=== PATIENT | male | born 1935 | race Caucasian/White ===

== ENCOUNTER 2017-02-12 10:22 | Emergency (ER) | payer MEDICARE ==
[~2017-02-12 10:22] MED LIST: ASCO500C6 PO; ASPI-973 PO; CEPH500T PO; CHOL200047 PO; CITA20TA11 PO; CLOP75TA28 PO; FOLI0.4T2 PO; GABA-502 PO; HYDR-4003 PO; ISOS60TA2 PO; LATA2.5D6 BOTH_EYES; LIP40 PO; LORA1TAB PO; LOSA25TA21 PO; MAGN500T PO; METO100T3 PO; MULT1CAP33 PO; NITR0.4T PO; OMEG300C3 PO; UBID100T7 PO
[2017-02-12 10:29] VITALS: BP 113/67; PULSE 62; RESP 12; O2SAT 98
--- NOTE | 2017-02-12 10:30 | ED.REPORT ---
HPI-Trauma Minor / Fall Date of Service February 12, 2017 ED Provider: Beto Dumont DO The pt is a 82 y/o male on Plavix w/ a hx of sternectomy, hypertension, spinal stenosis, CAD, ID, hyperlipidemia and multiple other medical concerns presenting to the ED via ambulance due to falling twice earlier today. He reports walking to the bathroom w/ his walker and his L leg "giving out." This caused him to fall and hit his head, resulting in soreness in his head and neck. There was no LOC. His leg has been giving out on him for the last 6 months. He denies back pain, loss of bowel or bladder control, chest pain, abdominal pain or saddle numbness. The pt lives alone and is usually able to transfer from his wheelchair or walker to the toilet independently. Nursing Notes Stated Complaint: FALL Chief Complaint: Multiple Trauma/Fall Nursing Notes Reviewed: Yes Allergies: Coded Allergies: No Known Allergies (Unverified Allergy, Unknown, 07/03/15) Scheduled Ascorbic Acid (Vitamin C) 500 Mg Capsule.er 1,500 MG PO DAILY Aspirin (Aspirin) 81 Mg Tablet 81 MG PO DAILY Atorvastatin (Lipitor) 40 Mg Tablet 40 MG PO DAILY Cephalexin (Cephalexin) 500 Mg Tablet 500 MG PO DAILY Cholecalciferol (Vitamin D3) (Vitamin D3) 2,000 Unit Capsule 2,000 UNIT PO BID Citalopram (Citalopram) 20 Mg Tablet 20 MG PO HS Clopidogrel (Clopidogrel) 75 Mg Tablet 75 MG PO DAILY Folic Acid (Folic Acid) 0.4 Mg Tablet 0.4 MG PO DAILY Gabapentin (Gabapentin) 300 Mg Capsule 900 MG PO TID Isosorbide MN ER (Isosorbide MN ER) 60 Mg Tab.er.24h 60 MG PO 0730 Latanoprost (Latanoprost) 2.5 Ml Drops 1 DROP BOTH_EYES HS Lorazepam (Lorazepam) 1 Mg Tablet 1-2 MG PO HS Losartan Potassium (Losartan Potassium) 25 Mg Tablet 25 MG PO DAILY Metoprolol Tartrate (Metoprolol Tartrate) 100 Mg Tablet 100 MG PO BID Multivitamin (Multivitamins) 1 Each Capsule 1 EACH PO DAILY [place]-3 Fatty Acids (Fish Oil) 300 Mg Capsule 900 MG PO BID Ubidecarenone (Coenzyme Q10) 100 Mg Tablet 100 MG PO DAILY Scheduled PRN Hydrocodone-Acetaminophen 5-325 mg (Hydrocodone-Acetaminophen 5-325 mg) 1 Each Tablet 1 EACH PO QID PRN PRN For Pain Nitroglycerin SL (Nitrostat) 0.4 Mg Tab.subl 0.4 MG PO Q5MIN PRN PRN For Chest Pain Miscellaneous Medications Magnesium Oxide (Magnesium Oxide) 500 Mg Tablet 500 MG PO General Time Seen by MD: 10:30 Chief Complaint Fall Hx Obtained From: Patient, EMS Arrived By: Ambulance Onset Occurred: Just prior to arrival Recent Healthcare: No recent hospitalization, Recent doctor visit Similar Sx Previous: Yes Past Medical History Past Medical History Urinary retention Benign prostatic hypertrophy, TURP x2 Upper extremity DVT Anxiety Spinal stenosis Sleep apnea on CPAP Neuropathy thrombocytopenia Anemia AV arrhythmias status post AICD/pacer UTI sepsis in May 2014. Cataracts MRSA Spinal stenosis Arthritis emphysema ID Gout Reports: Coronary artery disease, Hyperlipidemia, Hypertension Past Surgical History TURP AICD/pacemaker Sternectomy Pectoral flap Bilat partial knee replacements Back L shoulder Reports: CABG Smoking History Never Smoker Social History Alcohol Use: Denies alcohol use Other Social History: Good social support, Ambulatory Status Walker Review of Systems Loss of L leg function, head pain Denies saddle numbness Denies loss of bowel or bladder control Basic Review of Systems GI: No abdominal pain Respiratory: Denies: Non-productive cough Musculoskeletal: Reports: Neck pain, Denies: Back pain Neurologic: Denies: Change LOC Complete sys rev & neg: except as marked. Cardiovascular: Denies: Chest pain GI: Denies: Abdominal pain Physical Exam Initial Vital Signs Vital Signs (First) Date Time Temp Pulse Resp B/P Pulse Ox O2 Delivery O2 Flow Rate FiO2 02/12/17 10:29 36.3 62 12 113/67 98 Initial VS: Reviewed General/Constitutional: Awake, Alert Appearance / Presentation: Positive: Obese Neck: Atraumatic, Supple, Full range of motion Head / Eyes: Normocephalic, No photophobia Bruising around L supraorbital area ENT: Atraumatic, Airway patent Respiratory / Chest: Breath sounds NL, Breath sounds = bilat, No respiratory distress Sternum is surgically absent w/ well healed scar Prominent visible beating of his underlying myocardium Cardiovascular: Heart rate NL, Regular rhythm, Heart sounds NL 1+ dorsalis pedis pulses Back: Atraumatic, Full range of motion Lower Extremity / Pelvis / MS: Full range of motion, Neurologic intact Abrasions to L patella and anterior tibia Trace lower extremity edema Skin: Atraumatic, Color NL, No rash, Warm, Dry Neurologic: Oriented X3, Speech NL Interpretation & Diagnostics Lab Results Interpretation Result Diagram: 02/12/17 1050 02/12/17 1050 Test 02/12/17 10:50 White Blood Count 9.8th/mm3 (3.8-10.1) Red Blood Count 4.73mil/mm3 (4.40-5.80) Hemoglobin 14.5g/dL (13.8-17.2) Hematocrit 41.9% (41.0-50.0) Mean Corpuscular Volume 88.6fL (81-100) Mean Corpuscular Hemoglobin 30.7pg (27.0-35.0) Mean Corpuscular Hemoglobin Concent 34.6% (32.0-37.0) Red Cell Distribution Width 14.9% (12.3-15.4) Platelet Count 205bil/L (150-400) Neutrophils (%) (Auto) 74.1% (40-74) Lymphocytes (%) (Auto) 14.6% (14-46) Monocytes (%) (Auto) 10.2% (4-12) Eosinophils (%) (Auto) 0.5% (0-5) Basophils (%) (Auto) 0.1% (0-3) Sodium Level 132mEq/L (134-144) Potassium Level 4.2mEq/L (3.5-5.2) Chloride Level 95mEq/L (97-108) Carbon Dioxide Level 20mmol/L (18-29) Blood Urea Nitrogen 23mg/dL (8-27) Creatinine 0.83mg/dL (0.76-1.27) Estimat Glomerular Filtration Rate 95mL/min (>59) Glucose Level 124mg/dL (60-99) Calcium Level 9.2mg/dL (8.5-10.1) Total Bilirubin 0.8mg/dL (0.0-1.2) Aspartate Amino Transf (AST/SGOT) 23U/L (0-50) Alanine Aminotransferase (ALT/SGPT) 49U/L (0-44) Alkaline Phosphatase 62U/L (25-160) Total Protein 6.6g/dL (6.4-8.4) Albumin 4.2g/dL (3.4-5.0) ECG Interpretation ECG Interpretation: Sinus rhythm of 62 Widened QRS at 131 Normal QTC at [address] changes Time: 10:47 Interpreted by: ED physician CT Head Interpretation IMPRESSION: Left frontal scalp hematoma and soft tissue swelling. No acute intracranial process. Dictated by: Riley Haider M.D. on 02/12/2017 at 12:00 Approved by: Riley Haider M.D. on 02/12/2017 at 12:03 Study: Head CT no contrast Interpretation / Wet Read by: Interpret - Radiologist CT C-Spine Interpretation IMPRESSION: Suboptimal study sensitivity due to noise artifact, and diffuse osteopenia. No definite acute fracture seen. Mild to moderate mid to lower cervical disc degeneration from C5-C7. Overall, appearance of the anterior endplates of C5-C7 appears grossly unchanged since prior study dated 11/30/16. Dictated by: Riley Haider M.D. on 02/12/2017 at 12:03 Approved by: Riley Haider M.D. on 02/12/2017 at 12:09 Study type: CT no contrast Interpretation / Wet Read by: Interpret - Radiologist Re-Eval/Medical Decision Med Decision/Clinical Course Overall this sounds like a mechanical fall. Trauma imaging in basic labs are unremarkable. The patient reports that he feels normal and at baseline. It does sound like he has had trouble with ambulation and is mostly wheelchair bound. He and his family feel comfortable taking him home. Return and follow-up precautions given. Source of Hx: Old records Re-Evaluation/Progress : Time of Eval: 12:22 Patient Status: Condition improved Re-Evaluation/Progress Note: Discussed labs and plans for discharge. Pt understands and agrees with plan for discharge. F/U instructions and RTER warnings given. All questions addressed. Counseled Regarding: Diagnosis, Lab results, Need for follow-up, When/why to return to ED Discharge & Departure Impression: Primary Impression: Fall Encounter type: initial encounter Qualified Code: W19.XXXA - Unspecified fall, initial encounter Additional Impression: Contusion of forehead Encounter type: initial encounter Qualified Code: S00.83XA - Contusion of other part of head, initial encounter Disposition: Home Discharge Condition All VS Reviewed: Yes Condition: Stable Additional Instructions: Thank you for entrusting us with your care. You were seen today due to a fall with associated head pain. Luckily your imaging studies didn't show any fractures. Maintain 3 points of contact to help reduce risk of future falls. Take Tylenol as needed to manage the pain. Arrange a follow up appointment later this week for further evaluation. Return to the emergency department if you experience any headaches, vomiting, nausea, or any other new or worsening symptoms. Referrals: Blank Mckeon MD (PCP) Scribe Attestation Portions of this note were transcribed by Alvarez Strong and Marcellus Claudio. I, Dr. Deangelo Glover personally performed the history, physical exam and medical decision- making; I reviewed and confirmed the accuracy of the information in the transcribed note. Signed by: Rachell Enamorado, 02/12/17 and 1314. copies to: Blank Mckeon MDBeto Portillo February 12, 2017 10:30 Alvarez Strong February 12, 2017 10:47 MARCELLUS CLAUDIO February 12, 2017 13:07
[2017-02-12 11:13] LABS: BASOPHILS % (AUTO) 0.1 % (0-3); EOSINOPHILS % (AUTO) 0.5 % (0-5); MONOCYTES % (AUTO) 10.2 % (4-12); Mean Corpuscular Hemoglobin 30.7 pg (27.0-35.0); Mean Corpuscular Volume 88.6 fL (81-100); NEUTROPHILS % (AUTO) 74.1 % (40-74); Platelet Count 205 bil/L (150-400)
--- NOTE | 2017-02-12 12:05 | DRSVH ---
PROCEDURE: CT BRAIN WITHOUT CONTRAST ([id number]) INDICATIONS: fall, head injury, neck pain TECHNIQUE: Noncontrast 4.5 mm thick angled axial sections acquired from the foramen magnum to the vertex, with c oronal reformats. COMPARISON: [facility], CT, CT BRAIN WO CON, 09/08/2016, 13:24. FINDINGS: Image quality: Excellent. CSF spaces: Basal cisterns are patent. No extra-axial fluid collections. The ventricles are symmet mo in size and shape. Brain: No intracranial bleeds or masses. Possible subtle left occipital encephalomalacia, however th e appearance is unchanged since 09/08/16. There is a presumed calcification in the anterior right fro ntal axial space which is unchanged There is cerebral volume loss for age, with resultant ventricular and sulcal prominence. There are periventricular and deep white matter chronic small vessel ischemi c changes. There is intracranial internal carotid artery atherosclerosis. Skull and face: Large left frontal scalp contusion/hematoma Sinuses: Visualized sinuses and mastoids are clear. IMPRESSION: Left frontal scalp hematoma and soft tissue swelling. No acute intracranial process. Dictated by: Riley Haider M.D. on 02/12/2017 at 12:00 Approved by: Riley Haider M.D. on 02/12/2017 at 12:03
--- NOTE | 2017-02-12 12:11 | DRSVH ---
PROCEDURE: CT CERVICAL SPINE WITHOUT CONTRAST ([id number]) INDICATIONS: fall, head injury, neck pain TECHNIQUE: Noncontrast 3 mm thick sections acquired from the skull base to the T4 level. Sagittal and coronal r eformats were then constructed. For radiation dose reduction, the following was used: automated exp osure control, adjustment of mA and/or kV according to patient size. COMPARISON: [facility], CT, CT MYELOGRAM THORACIC SPINE, 11/30/2016, 14:43. FINDINGS: Image quality: Suboptimal due to body habitus and noise artifact in particular at the level of C4-C7 Bones: No fractures or dislocations. There is decreased in study sensitivity due to noise artifact and diffuse osteopenia. Diffuse cervical endplate spurring and sclerosis is present with grossly unch anged appearance since 11/30/16 Visualized superior ribs are intact. Bilateral diffuse facet arthropa thy. Soft tissues: Prevertebral soft tissues are normal in thickness. No paravertebral hematomas. No ap ical pneumothoraces. IMPRESSION: Suboptimal study sensitivity due to noise artifact, and diffuse osteopenia. No definite acute fractur e seen. Mild to moderate mid to lower cervical disc degeneration from C5-C7. Overall, appearance of t he anterior endplates of C5-C7 appears grossly unchanged since prior study dated 11/30/16. Dictated by: Riley Haider M.D. on 02/12/2017 at 12:03 Approved by: Riley Haider M.D. on 02/12/2017 at 12:09
== END 2017-02-12 12:50 | disposition home or self-care (01) ==
LOC: EDBD 10:22 → SED 10:22
DX: S00.83XA Contusion of other part of head, initial encounter (principal); W18.30XA Fall on same level, unspecified, initial encounter; Y93.01 Activity, walking, marching and hiking; Y92.9 Unspecified place or not applicable; Y99.8 Other external cause status; I10 Essential (primary) hypertension; I25.10 Atherosclerotic heart disease of native coronary artery without angina pectoris; I25.2 Old myocardial infarction; E78.5 Hyperlipidemia, unspecified; Z79.82 Long term (current) use of aspirin; Z87.440 Personal history of urinary (tract) infections; Z86.14 Personal history of Methicillin resistant Staphylococcus aureus infection; Z95.0 Presence of cardiac pacemaker; Z95.1 Presence of aortocoronary bypass graft

== ENCOUNTER 2017-03-12 09:45 | Emergency (ER) | payer MEDICARE ==
--- NOTE | 2017-03-12 09:40 | ED.REPORT ---
HPI-Head Prob / Injury Date of Service Mar 12, 2017 ED Provider: Dr. Dumont Pt is an 82 y/o male on Plavix w/ a hx of CAD and [place] s/p CABGx3, HTN, AICD/ pacer placement, paroxysmal A-fib, presenting to the ED via EMS due to head injury secondary to ground level fall which occurred prior to arrival. The patient was weighing himself on a scale at his house and the scale slipped on the hardwood floor and caused him to fall and hit his head. He denies any change in LOC, nausea, vomiting, abdominal pain, CP, SOB, extremity pain, back pain, neck pain, headache. Medics also note bilateral knee abrasions. Nursing Notes Stated Complaint: GROUND LEVEL FALL Nursing Notes Reviewed: Yes Allergies: Coded Allergies: No Known Allergies (Unverified Allergy, Unknown, 07/03/15) Scheduled Ascorbic Acid (Vitamin C) 500 Mg Capsule.er 1,500 MG PO DAILY Aspirin (Aspirin) 81 Mg Tablet 81 MG PO DAILY Atorvastatin (Lipitor) 40 Mg Tablet 40 MG PO DAILY Cephalexin (Cephalexin) 500 Mg Tablet 500 MG PO DAILY Cholecalciferol (Vitamin D3) (Vitamin D3) 2,000 Unit Capsule 2,000 UNIT PO BID Citalopram (Citalopram) 20 Mg Tablet 20 MG PO HS Clopidogrel (Clopidogrel) 75 Mg Tablet 75 MG PO DAILY Folic Acid (Folic Acid) 0.4 Mg Tablet 0.4 MG PO DAILY Gabapentin (Gabapentin) 300 Mg Capsule 900 MG PO TID Isosorbide MN ER (Isosorbide MN ER) 60 Mg Tab.er.24h 60 MG PO 0730 Latanoprost (Latanoprost) 2.5 Ml Drops 1 DROP BOTH_EYES HS Lorazepam (Lorazepam) 1 Mg Tablet 1-2 MG PO HS Losartan Potassium (Losartan Potassium) 25 Mg Tablet 25 MG PO DAILY Metoprolol Tartrate (Metoprolol Tartrate) 100 Mg Tablet 100 MG PO BID Multivitamin (Multivitamins) 1 Each Capsule 1 EACH PO DAILY [place]-3 Fatty Acids (Fish Oil) 300 Mg Capsule 900 MG PO BID Ubidecarenone (Coenzyme Q10) 100 Mg Tablet 100 MG PO DAILY Scheduled PRN Hydrocodone-Acetaminophen 5-325 mg (Hydrocodone-Acetaminophen 5-325 mg) 1 Each Tablet 1 EACH PO QID PRN PRN For Pain Nitroglycerin SL (Nitrostat) 0.4 Mg Tab.subl 0.4 MG PO Q5MIN PRN PRN For Chest Pain Miscellaneous Medications Magnesium Oxide (Magnesium Oxide) 500 Mg Tablet 500 MG PO General Time Seen by Provider: 09:42 Chief Complaint Blunt head trauma Hx Obtained From: Patient, EMS Arrived By: Ambulance Onset Occurred: Just prior to arrival Symptom Duration: Since onset Progression Since Onset: Unchanged Caused by: Fall from (ground) Severity: Current: No pain currently Severity: Maximum: No pain Similar Sx Previous: Yes Past Medical History Past Medical History 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 Cataracts MRSA Spinal stenosis Arthritis emphysema [place] Gout Paroxysmal A-fib Past Surgical History TURP AICD/pacemaker Sternectomy CABGx3 Pectoral flap Bilat partial knee replacements Back L shoulder Smoking History Never Smoker Social History Alcohol Use: Denies alcohol use Other Social History: Good social support, Ambulatory Status Walker Review of Systems Review of Systems Note: +head injury Constitutional: Denies: Chills, Fever GI: Denies: Abdominal pain, Diarrhea, Nausea, Vomiting Musculoskeletal: Denies: Back pain, Extremity pain, Neck pain Neurologic: Denies: Change LOC, Confusion, Focal weakness, Headache, Numbness, Syncope Complete sys rev & neg: except as marked. Respiratory: Denies: Non-productive cough, Pleuritic pain, Shortness of breath Cardiovascular: Denies: Chest pain, Dyspnea on exertion, Syncope Male: Denies Flank pain, Denies Incontinence Physical Exam Initial Vital Signs All VS stable, See RN paper sheet. Initial VS: Reviewed Cardiovascular: Regular rate & rhythm, Heart sounds normal, Intact distal pulses Abdomen / GI: Soft, Non-tender, No guarding, No rebound, No distention Skin: Warm, Dry, No cyanosis Psychiatric: Mood/affect normal, Behavior normal, Normal thought content General/Constitutional: Awake, Alert, No acute distress, Cooperative, Not toxic appearing Head / Eyes: Normocephalic, PERRL, EOMI Large 4 cm left frontal hematoma ENT: Atraumatic, Airway patent, Mucous membranes moist Neck: Atraumatic, Supple, No meningismus, Full range of motion, No swelling, Non-tender, No midline vertebral tend Neurologic: Oriented X3, Speech NL, No motor deficits, No sensory deficits, CN II - XII intact, Cerebellar NL, Memory NL Respiratory / Chest: Atraumatic, Breath sounds NL, Breath sounds = bilat, No respiratory distress, No rales, No rhonchi, No wheezing, No retractions Post-surgical changes of the chest; lower half of sternum is surgically absent Upper Extremity / MS: Atraumatic, Inspection NL, Full range of motion, No swelling, Non-tender, No erythema, No deformity, Neurologic intact, Vascular intact, No compartment syndrome, No clubbing/cyanosis, No edema Lower Extremity / Pelvis / MS: Full range of motion, Non-tender, No deformity, Neurologic intact, Vascular intact, Pelvis stable, Pelvis non-tender Abrasions about the knees bilaterally Interpretation & Diagnostics Lab Results Interpretation Lab Results Interpretation: Trauma CBC that were ran without an order due to standbye trauma activation were normal. CT Head Interpretation IMPRESSION: No acute intracranial abnormality. Small scalp hematoma left frontal area as on the recent previous study. Dictated by: Roderick Asher M.D. on 03/12/2017 at 10:19 Approved by: Roderick Asher M.D. on 03/12/2017 at 10:22 Study: Head CT no contrast Interpretation / Wet Read by: Interpret - Radiologist Procedures Procedure Notes: The bilateral knee abrasions were cleaned and dressed by a medical student under supervision of Dr. Dumont. Re-Eval/Medical Decision Med Decision/Clinical Course Mechanical ground-level fall without loss of consciousness, seizures has superficial abrasions to both knees in the left frontal area. Head CT performed due to head injury on Plavix. Stable for discharge. Patient has known lower extremity weakness which is chronic and does not seem to be an acute issue today. Return and follow-up precautions given Re-Evaluation/Progress : Time of Eval: 10:24 Re-Evaluation/Progress Note: Pt rechecked. Discussed normal imaging and trauma CBC results. Informed pt of plan for treatment. Pt understands and agrees with plan for treatment. F/U instructions and RTER warnings given. All questions addressed. Counseled Regarding: Diagnosis, Need for follow-up, When/why to return to ED Discharge & Departure Primary Impression: Minor head injury Encounter type: initial encounter Qualified Code: S00.90XA - Unspecified superficial injury of unspecified part of head, initial encounter Additional Impressions: Fall from ground level Abrasion of knee, bilateral Hematoma of frontal scalp Encounter type: initial encounter Qualified Code: S00.03XA - Contusion of scalp, initial encounter Platelet inhibition due to Plavix Disposition: Home All VS Reviewed: Yes Condition: Stable Patient Instructions: Head Injury (ED) Additional Instructions: The CT scan showed no signs of bleeding in the brain or skull fracture. Keep your abrasions covered with antibiotic ointment and clean bandages. Follow-up with your primary care doctor next week for a recheck. Return to the emergency department if you experience another head injury, confusion, severe headache, numbness or weakness of one side of your body, vomiting, fever, or for other concerning symptoms. Referrals: [facility] Scribe Attestation Portions of this note were transcribed by Kyrie Welch. I, Dr. Dumont personally performed the history, physical exam and medical decision-making; I reviewed and confirmed the accuracy of the information in the transcribed note. Signed by Milagros Carcamo, 03/12/17 - 999 Beto Dumont DO Mar 12, 2017 09:40 KYRIE WELCH Mar 12, 2017 09:51
--- NOTE | 2017-03-12 10:24 | DRSVH ---
PROCEDURE: CT BRAIN WITHOUT CONTRAST ([id number]) INDICATIONS: fall, head injury on plavix TECHNIQUE: Noncontrast 4.5 mm thick angled axial sections acquired from the foramen magnum to the vertex, with c oronal reformats. COMPARISON: [facility], CT, CT BRAIN WO CON, 02/12/2017, 11:08. FINDINGS: Image quality: Good. CSF spaces: Basal cisterns are patent. No extra-axial fluid collections. The ventricles are symmet mo in size and shape. Brain: No intracranial bleeds or masses. There is cerebral volume loss for age, with resultant vent ricular and sulcal prominence. There are periventricular and deep white matter chronic small vessel ischemic changes. There is intracranial internal carotid artery atherosclerosis. Skull and face: Calvarium and visualized facial bones appear intact, without suspicious lesions. Sinuses: Visualized sinuses and mastoids are clear. IMPRESSION: No acute intracranial abnormality. Small scalp hematoma left frontal area as on the recent previous study. Dictated by: Roderick Asher M.D. on 03/12/2017 at 10:19 Approved by: Roderick Asher M.D. on 03/12/2017 at 10:22
[2017-03-12] MEDS ORDERED: HYDROcodone-APAP 5-325 mg Tablet PO ONE (11:00)
== END 2017-03-12 11:28 | disposition home or self-care (01) ==
LOC: SED 09:45
DX: S00.03XA Contusion of scalp, initial encounter (principal); S80.211A Abrasion, right knee, initial encounter; S80.212A Abrasion, left knee, initial encounter; W18.30XA Fall on same level, unspecified, initial encounter; Y92.009 Unspecified place in unspecified non-institutional (private) residence as the place of occurrence of the external cause; Y93.89 Activity, other specified; Y99.8 Other external cause status; D69.1 Qualitative platelet defects; I25.10 Atherosclerotic heart disease of native coronary artery without angina pectoris; I25.2 Old myocardial infarction; I10 Essential (primary) hypertension; I48.0 Paroxysmal atrial fibrillation; E78.5 Hyperlipidemia, unspecified; F41.9 Anxiety disorder, unspecified; D64.9 Anemia, unspecified; Z86.718 Personal history of other venous thrombosis and embolism; Z95.0 Presence of cardiac pacemaker; Z95.1 Presence of aortocoronary bypass graft; Z79.01 Long term (current) use of anticoagulants; Z79.82 Long term (current) use of aspirin

== ENCOUNTER 2017-05-25 19:18 | Emergency (ER) | payer MEDICARE ==
[~2017-05-25] VITALS: Ht 177.8 cm; Wt 122.5 kg
[2017-05-25 19:25] VITALS: BP 138/88; PULSE 80; RESP 16; O2SAT 97
--- NOTE | 2017-05-25 20:16 | ED.REPORT ---
HPI-Extremity Problem Lower Date of Service May 25, 2017 ED Provider: Dr. Dumont The pt is an 82 y/o male on Plavix w/ a hx of CAD and ID (s/p CABGx3) , HTN, AICD (pacer placement), and paroxysmal A-fib who presents to the ED complaining of left 4th toe erythema and swelling that the pt just noticed today. Associated sx include mild erythematous streak extending laterally from the toes to the ankle of the left foot. He is not experiencing any pain in the toe. There are no other sx at this time. Nursing Notes Stated Complaint: LT FOOT PAIN/SWELLING Chief Complaint: Extremity Trauma Nursing Notes Reviewed: Yes Allergies: Coded Allergies: No Known Allergies (Unverified Allergy, Unknown, 07/03/15) Scheduled Ascorbic Acid (Vitamin C) 500 Mg Capsule.er 1,500 MG PO DAILY Aspirin (Aspirin) 81 Mg Tablet 81 MG PO DAILY Atorvastatin (Lipitor) 40 Mg Tablet 40 MG PO DAILY Cephalexin (Cephalexin) 500 Mg Tablet 500 MG PO DAILY Cholecalciferol (Vitamin D3) (Vitamin D3) 2,000 Unit Capsule 2,000 UNIT PO BID Citalopram (Citalopram) 20 Mg Tablet 20 MG PO HS Clindamycin (Clindamycin) 300 Mg Capsule 300 MG PO QID Clopidogrel (Clopidogrel) 75 Mg Tablet 75 MG PO DAILY Folic Acid (Folic Acid) 0.4 Mg Tablet 0.4 MG PO DAILY Gabapentin (Gabapentin) 300 Mg Capsule 900 MG PO TID Isosorbide MN ER (Isosorbide MN ER) 60 Mg Tab.er.24h 60 MG PO 0730 Latanoprost (Latanoprost) 2.5 Ml Drops 1 DROP BOTH_EYES HS Lorazepam (Lorazepam) 1 Mg Tablet 1-2 MG PO HS Losartan Potassium (Losartan Potassium) 25 Mg Tablet 25 MG PO DAILY Metoprolol Tartrate (Metoprolol Tartrate) 100 Mg Tablet 100 MG PO BID Multivitamin (Multivitamins) 1 Each Capsule 1 EACH PO DAILY [place]-3 Fatty Acids (Fish Oil) 300 Mg Capsule 900 MG PO BID Ubidecarenone (Coenzyme Q10) 100 Mg Tablet 100 MG PO DAILY Scheduled PRN Hydrocodone-Acetaminophen 5-325 mg (Hydrocodone-Acetaminophen 5-325 mg) 1 Each Tablet 1 EACH PO QID PRN PRN For Pain Nitroglycerin SL (Nitrostat) 0.4 Mg Tab.subl 0.4 MG PO Q5MIN PRN PRN For Chest Pain Miscellaneous Medications Magnesium Oxide (Magnesium Oxide) 500 Mg Tablet 500 MG PO General Time Seen by MD: 20:16 Chief Complaint Other (erythema and swelling of left 4th toe) Hx Obtained From: Patient Arrived By: Walk-in Onset Occurred: 1 - 4 hours ago Symptom Duration: Since onset Severity: Current: No pain currently Severity: Maximum: No pain Recent Healthcare: Recent doctor visit Past Medical History Past Medical History 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 Cataracts MRSA Spinal stenosis Arthritis emphysema ID Gout Paroxysmal A-fib Past Surgical History TURP AICD/pacemaker Sternectomy CABGx3 Pectoral flap Bilat partial knee replacements Back L shoulder Smoking History Never Smoker Social History Alcohol Use: Denies alcohol use Other Social History: Good social support, Ambulatory Status Walker Review of Systems Reports: left 4th toe erythema and swelling Reports: mild erythematous streak extending up to left ankle from toes Musculoskeletal: Denies: Extremity pain (left 4th toe) Complete sys rev & neg: except as marked. Physical Exam Initial Vital Signs Vital Signs (First) Date Time Temp Pulse Resp B/P Pulse Ox O2 Delivery O2 Flow Rate FiO2 05/25/17 19:25 35.4 80 16 138/88 97 Room Air Initial VS: Reviewed Head / Eyes: Atraumatic, Normocephalic Neck: Supple, Non-tender, Full range of motion Respiratory: No respiratory distress Cardiovascular: Intact distal pulses Abdomen / GI: Soft, Non-tender, No guarding, No rebound, No distention Upper Extremities: Vascular intact, Neuro intact, No swelling, No tenderness Skin: Warm, Dry, No cyanosis Neurologic: Alert, Oriented, Nonfocal Lower Extremity / Pelvis / MS: Atraumatic, Full range of motion, No swelling, Non-tender, No deformity, Neurologic intact, Vascular intact Ankle / Foot: Atraumatic, Full range of motion, No deformity, Neurologic intact , Vascular intact Left 4th toe erythematous Minor streaking along the lateral portion of the foot in linear fashion. 1+ dorsalis pedis pulse No crepitus Normal cap refill General/Constitutional: Awake, Alert, Well appearing, Cooperative Re-Eval/Medical Decision Med Decision/Clinical Course Consistent with early cellulitis. Patient presents within hours of the identified infection, no signs of sepsis based on physical exam findings or vital sign criteria, patient is otherwise comfortable and feeling normal. It seems that given the quick presentation to the ER due to the onset of symptoms labs would not be helpful. Additionally, given the very short time course osteomyelitis seems unlikely and no x-rays would be performed either. Will start clindamycin based on comorbidities and other medications. Return and follow-up precautions given Re-Evaluation/Progress : Time of Eval: 20:18 Re-Evaluation/Progress Note: Rechecked pt. Discussed diagnosis and plan to discharge. Pt understands and agrees with the plan. F/U instruction and RTER warning given. All questions addressed. Counseled Regarding: Diagnosis, Need for follow-up, When/why to return to ED Discharge & Departure Impression: Primary Impression: Cellulitis Site of cellulitis: extremity Site of cellulitis of extremity: lower extremity Laterality: left Qualified Code: L03.116 - Cellulitis of left lower limb Disposition: Home Discharge Condition All VS Reviewed: Yes Condition: Stable Additional Instructions: Take clindamycin as prescribed. Follow up with your regular doctor in [facility] [place] in the next few days for recheck. Keep the area clean. Return to the ER as needed for worsening symptoms Referrals: Blank Mckeon MD (PCP) Scribe Attestation Portions of this note were transcribed by Elias Stone. I,, personally performed the history,physical exam and medical decision-making;I reviewed and confirmed the accuracy of the information in the transcribed note. Signed by Milagros Sheppard. 05/25/17 copies to: Blank Mckeon MD, Timothy S DO May 25, 2017 20:16 Elias Stone May 25, 2017 23:34
[2017-05-25] MEDS ORDERED: CLIN-78 PO (20:23)
[2017-05-25 20:47] VITALS: BP 146/86; PULSE 82; RESP 16; O2SAT 98
== END 2017-05-25 20:48 | disposition home or self-care (01) ==
LOC: SED 19:18
DX: L03.032 Cellulitis of left toe (principal); L03.116 Cellulitis of left lower limb; I10 Essential (primary) hypertension; I25.10 Atherosclerotic heart disease of native coronary artery without angina pectoris; I25.2 Old myocardial infarction; I48.0 Paroxysmal atrial fibrillation; E78.5 Hyperlipidemia, unspecified; Z95.0 Presence of cardiac pacemaker; Z95.1 Presence of aortocoronary bypass graft; Z86.14 Personal history of Methicillin resistant Staphylococcus aureus infection; Z86.718 Personal history of other venous thrombosis and embolism; Z96.653 Presence of artificial knee joint, bilateral; Z79.82 Long term (current) use of aspirin; Z79.02 Long term (current) use of antithrombotics/antiplatelets